=== PATIENT | female | born 1980 | race Caucasian/White ===

== ENCOUNTER → 2020-01-11 08:25 | Outpatient (BNVA) | payer SELFPAY | PROVIDERS: Family Provider Electrodiagnostic Medicine; Visit Provider Nurse Practitioner Women's Health | DX: Z30.431 Encounter for routine checking of intrauterine contraceptive device (principal); Z01.419 Encounter for gynecological examination (general) (routine) without abnormal findings | CPT/HCPCS: 88175 ==

== ENCOUNTER → 2022-04-25 09:25 | Outpatient (BNVA) | payer OTHER, SELFPAY | PROVIDERS: Family Provider Electrodiagnostic Medicine; Visit Provider Family Medicine | DX: E06.3 Autoimmune thyroiditis (principal); R10.9 Unspecified abdominal pain; F41.9 Anxiety disorder, unspecified; G43.109 Migraine with aura, not intractable, without status migrainosus | CPT/HCPCS: 80053; 84443; 85025 ==

== ENCOUNTER 2022-06-05 15:47 | Outpatient (CLI) | payer OTHER, SELFPAY ==
--- NOTE | 2022-06-05 16:00 | CT_ITS ---
WS: [id number] CT ABDOMEN AND PELVIS NONCONTRAST HISTORY: pain x wks w/ tenderness to palpation (nonsurgical abd) TECHNIQUE: Imaging performed through the abdomen and pelvis. Coronal and sagittal reformats are submi tted. All CT scans at [facility] use at least one of these dose optimization techniques: auto mated exposure control; mA and/or kV adjustment per patient size (includes targeted exams where dose is matched to clinical indication); or iterative reconstruction. DLP: 1281.02 mGy.cm COMPARISON: 02/13/2017 Lower thorax: Lung bases are clear. Visualized heart is normal. No hiatal hernia. Liver: Mild hepatomegaly decreased attenuation from hepatic steatosis. No mass identified. Gallbladder: Prior cholecystectomy. Pancreas: Normal size and attenuation. Normal pancreatic duct. No pancreatitis or mass. Spleen: Normal size spleen with a few granulomata. Adrenal glands: Normal. No mass. Right kidney: Normal size kidney with no mass or hydronephrosis. Left kidney: Normal size kidney with no mass or hydronephrosis. Aorta: Mild atherosclerosis abdominal aorta with no aneurysm. No free fluid, intraperitoneal air or significant lymphadenopathy. GI tract: Normal appendix. No small bowel obstruction. Stomach is moderately well distended with flui d. There is mild diffuse constipation, greatest in the RIGHT colon. There are several diverticula in the sigmoid colon with no acute diverticulitis. Abdominal wall: Negative. No hernia. Pelvis: Uterus is midline and contains an IUD. Small follicles in each ovary. No free fluid or adenop athy. Osseous structures: Unremarkable. CT/CT abdomen pelvis wo con [id number] IMPRESSION: 1. No acute abdominal or pelvic abnormalities identified. 2. Normal appendix. 3. IUD remains in good position. 4. Prior cholecystectomy. 5. A few scattered sigmoid diverticula without acute diverticulitis.
== END 2022-06-05 15:48 | disposition home or self-care (01) ==
LOC: RAD 15:49
PROVIDERS: Visit Provider Family Medicine
DX: R10.9 Unspecified abdominal pain (principal); K57.30 Diverticulosis of large intestine without perforation or abscess without bleeding
CPT/HCPCS: 74176

== ENCOUNTER 2022-07-06 20:22 | Emergency (ER) | payer OTHER, SELFPAY ==
[2022-07-06 20:38] VITALS: BP 174/85; PULSE 55; RESP 20; TEMP 36.8; O2SAT 100; BMI 36.5
--- NOTE | 2022-07-06 21:32 | ED_ITS ---
HPI - Dental/Oral General: Chief complaint: Dental/Oral Stated complaint: Abcess in mouth Time Seen by Provider: 07/06/22 21:15 History of Present Illness: Patient is a 42-year-old female who comes to the ED with dental pain. Dental pain started approximately 4 days ago. She rates t he pain currently an 8 out of 10 and it radiates into her right jaw. She called her dentist and they started her on amoxicillin. She was told to call dentist on Friday morning to set up an appointment for further management of dental pain. She is only taken 3 doses of amoxicillin. She states that she was on Augmentin about a week ago as well for an upper respiratory infection. Denies any trouble breathing or swallowing. Teeth map: 1. Dental pain on tooth #31 Associated symptoms: Denies fever(s) or odynophagia Review of Systems Const: Denies: fever(s), chills or fatigue Eyes: Denies: change in vision or eye discomfort ENMT: Reports: dental pain; Denies: throat pain, odynophagia, nasal discharge or nasal congestion Card: Denies: chest pain, palpitations, edema, swelling of feet/ankles, dyspnea on exertion or orthopnea Resp: Denies: dyspnea, productive cough or non-productive cough GI: Denies: abdominal pain, nausea, vomiting, diarrhea, constipation or hematochezia : Denies: flank pain, dysuria or hematuria Musc: Denies: neck pain, back pain or extremity swelling Skin/Breast: Denies: rash or new lesions Neuro: Denies: headache(s), numbness in extremities or weakness in extremities PFSH ED PFSH: Medical History Anxiety Blanca's thyroiditis Migraine with aura Surgical History History of section History of cholecystectomy (~1998) History of oral surgery Family History Mother Hypertension Diabetes Cancer, Onset Age: 40 Uterine cancer Brother Hypertension Father Hypertension Family/Other Diabetes Maternal aunt Cancer Maternal Aunt Social History Smoking and tobacco status: former smoker Quit status (tobacco): has quit using tobacco Year quit tobacco: 2018 Alcohol intake: never Lives independently: Yes Household members: spouse and children Marital status: Number of children: 2 Current occupational status: employed 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 Physical Exam Const: COMMON NORMALS: no acute distress, patient oriented x3 and alert GENERAL APPEARANCE: cooperative and comfortable HENMT: COMMON NORMALS: normocephalic HEAD & SCALP: normocephalic MOUTH: Normal oral and palatal mucosa present TEETH & GINGIVA: Yes caries (Back lower right molar has dental caries.) THROAT: posterior oropharynx normal and uvula midline Eye: GENERAL EYE: appearance normal, both eyes and all related structures Neck/C-Spine: COMMON NORMALS: supple GENERAL: Yes normal visual inspection Resp: COMMON NORMALS: normal respiratory effort, No retractions, No use of accessory muscles and clear to auscultation bilaterally AUSCULTATION: clear to auscultation bilaterally Cardio: COMMON NORMALS: regular rate, regular rhythm, S1 normal heart sound present, S2 normal heart sound present, No gallops present (Cardio), No clicks present (Cardio), No murmurs present (Cardio) and Peripheral pulses 2+ throughout RATE: regular rate RHYTHM: regular rhythm HEART SOUNDS: S1 normal heart sound present and S2 normal heart sound present PERIPHERAL PULSES: Peripheral pulses 2+ throughout GI: COMMON NORMALS: Normal to inspection, nondistended, normoactive bowel sounds present, Soft to palpation, non-tender and no masses PALPATION: Yes Soft to palpation : COMMON NORMALS: Yes no CVA tenderness BLADDER/KIDNEY EXAM: Yes no CVA tenderness Back/Pelvis: COMMON NORMALS: no CVA tenderness Extremity: COMMON NORMALS: normal to inspection Neuro: COMMON NORMALS: patient oriented x3 SENSORIUM/ORIENTATION: Yes alert GAIT: Yes Normal gait present Skin: GENERAL SKIN EXAM: dry skin Course Vital Signs: Vital signs: Vital Signs Temperature 98.3 F 07/06/22 20:38 Pulse Rate 61 07/06/22 21:57 Respiratory Rate 18 07/06/22 21:57 Blood Pressure 161/82 07/06/22 21:57 Pulse Oximetry 100 07/06/22 21:57 Oxygen Delivery Me thod 07/06/22 20:38 MDM - Dental/Oral Medical Decision Making Patient is a 42-year-old female comes to the ED with dental pain. She just started taking amoxicillin yesterday and says the pain has not improved. She has an appointment with her dentist this coming week for further evaluation. Denies any trouble breathing or swallowing. Vitals are unremarkable. Patient does have dental caries in the back bottom right molar. Patient was given a dose of clindamycin and Toradol here in the ED and sent home with a prescription for clindamycin. Told to follow-up with his dentist as scheduled appointment this coming week. Return to ED precautions given. Patient understood and agreed with plan. Discharge Plan Discharge Patient Disposition: Home Clinical Impression: Dental infection Condition: Stable Prescriptions: New clindamycin HCl 150 mg capsule 300 mg PO QID 7 Days Qty: 56 0RF No Action amoxicillin-pot clavulanate 875-125 mg tablet 1 tab PO BID Qty: 10 0RF Excedrin Migraine 250-250-65 mg tablet 1 tab PO Q6H PRN escitalopram oxalate [Lexapro] 10 mg tablet 10 mg PO DAILY Qty: 30 5RF levothyroxine 50 mcg capsule 50 mcg PO DAILY Qty: 30 5RF diclofenac sodium [Voltaren Arthritis Pain] 1 % gel 2 g topical QID Qty: 100 0RF Rx Instructions: apply to single elbow, wrist or hand; for hand includes palm/fingers/back of hand Discharge Orders: Discharge ED (Routine); Ordered 07/06/22 Ordered By: Reji Bhandari Referrals: Tiffany Del Rio MD [Primary Care Provider] - Discharge Diet: Regular Discharge Activity: Increase activity as tolerated Patient Instructions: Dental Caries (Cavities), Dental Abscess (ED) Activity Restrictions/Additional Instructions: Follow-up with dentist on Friday to get an appointment set up for further evaluation/treatment of dental pain. Take medications as prescribed. You can stop taking the previously prescribed amoxicillin. Continue taking [id number] Tylenol or ibuprofen per bottle instruction for pain. Return to the ER or your medical provider if condition worsens. Please read and understand discharge instructions. Thank you for choosing [facility] for your healthcare needs today. Please realize this is an emergency room and that we are providing you with a medical screening exam and this may not be complete and all inclusive of all the testing and or work up that you may need to determine your ailment or severity of your illness. It is very important that you follow up as instructed or that you return to the Emergency Department should you have concerns or if your condition changes or worsens in any way. Coding Level of Care Code ED Camp[facility] Hand for Beatrice Townsend Exam Comprehensive
[2022-07-06] MEDS: ketorolac 60 mg/2 mL INJ IM (21:47)
[2022-07-06] MEDS: clindamycin 150 mg Capsule 300 MG PO (21:47)
[2022-07-06 21:57] VITALS: BP 161/82; PULSE 61; RESP 18; O2SAT 100
== END 2022-07-06 22:01 | disposition home or self-care (01) ==
PROVIDERS: Emergency Provider Physician Assistant; PCP Family Medicine
DX: K04.7 Periapical abscess without sinus (principal); Z87.891 Personal history of nicotine dependence
CPT/HCPCS: 96372; 99284; J1885

== ENCOUNTER 2022-07-08 03:19 | Emergency (ER) | payer OTHER, SELFPAY ==
[2022-07-08 03:31] VITALS: BP 168/98; PULSE 84; RESP 20; TEMP 36.6; O2SAT 98; BMI 36.5
--- NOTE | 2022-07-08 03:57 | CTR_ITS ---
PROCEDURE INFORMATION: Exam: CT Neck With Contrast Exam date and time: 07/08/2022 4:51 AM Age: 42 years old Clinical indication: Neck pain and painful swallowing; Additional info: Submandibular swelling TECHNIQUE: Imaging protocol: Computed tomography of the neck with contrast. Radiation optimization: All CT scans at this facility use at least one of these dose optimization techniques: automated exposure control; mA and/or kV adjustment per patient size (includes targeted exams where dose is matched to clinical indication); or iterative reconstruction. Contrast material: OMNIPAQUE 350; Contrast volume: 95 ml; Contrast route: INTRAVENOUS (IV); COMPARISON: [place] thyroid [id number] 02/18/2019 11:05 AM RADIATION DOSE METRICS: Total DLP (mGy-cm): 308.76 FINDINGS: Paranasal sinuses: The right lower maxillary sinus shows a large retention cyst measuring up to about 3.1 cm. Minimal left maxillary sinus mucosal thickening as well. Pharynx: No focal mucosal space suspicious lesion is noted. Larynx: Unremarkable. Epiglottis is unremarkable. Prevertebral and retropharyngeal spaces: Unremarkable. Salivary glands: Within normal limits. Glands are normal in size. Thyroid: The thyroid is not enlarged. No suspicious nodules are apparent. Lymph nodes: A few perimandibular nodes measure up to 1.4 cm. No necrotic lymphadenopathy. Trachea: Visualized trachea is unremarkable. Lungs: Unremarkable as visualized. Bones/joints: At the right anterior mandible/chin area, there is a large amount of subcutaneous edema and fat stranding. A few minute pockets of fluid but no sizable or demonstrable focal abscess. See series 3, image 54. No focal bone destruction is noted. Soft tissues: See Bones/joints finding. CT/CT neck w con* [id number] IMPRESSION: 1. Large amount of right jaw subcutaneous edema/cellulitis with some minute pockets of fluid but no sizable abscess. This may be an odontogenic infection. No strong evidence of sialoadenitis. 2. A few adjacent, likely reactive nodes. 3. Udrmn-zmgxleb-wpdq-left maxillary sinus disease.
[2022-07-08] MEDS: iohexol 350 mg/mL 500 mL Btl (per mL) IV (04:49)
--- NOTE | 2022-07-08 04:53 | ED_ITS ---
HPI - Dental/Oral General: Chief complaint: Dental/Oral Stated complaint: Absess Tooth\Swollen Face Time Seen by Provider: 07/08/22 03:38 Source: patient History of Present Illness: 42-year-old female who has been dealing with a right lower molar tooth problem. She is had 2 or 3 different antibiotics for this. She presents with worsening facial swelling over the past 24 hours or so. She denies any fever. She notes that she got worried when it became more difficult to swallow and more painful to swallow, and was hurting down into her neck. No trouble breathing. Onset (ago): day(s) Duration: constant Severity: moderate Relieving factors: prescription analgesics Exacerbating factors: swallowing Associated symptoms: Reports ear or mastoid pain, odynophagia and sore throat; Denies fever(s) or tongue swelling Review of Systems Const: Denies: fever(s) Eyes: Denies: change in vision ENMT: Reports: throat pain, odynophagia, mouth pain, dental pain, ear or mastoid pain and sinus pain; Denies: swelling of lips/tongue or ear discharge Card: Denies: chest pain Resp: Denies: dyspnea GI: Denies: abdominal pain All/Imm: Denies: tongue swelling PFSH ED PFSH: Medical History Anxiety Blanca's thyroiditis Migraine with aura Surgical History History of section History of cholecystectomy (~1998) History of oral surgery Family History Mother Hypertension Diabetes Cancer, Onset Age: 40 Uterine cancer Brother Hypertension Father Hypertension Family/Other Diabetes Maternal aunt Cancer Maternal Aunt Social History Smoking and tobacco status: former smoker Quit status (tobacco): has quit using tobacco Year quit tobacco: 2017 Alcohol intake: never Lives independently: Yes Household members: spouse and children Marital status: Number of children: 2 Current occupational status: employed 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 Physical Exam Const: COMMON NORMALS: no acute distress GENERAL APPEARANCE: cooperative HENMT: COMMON NORMALS: Normal external nose present FACE & SINUS: edema; no sinus tenderness, no ecchymosis and no erythema NOSE: Normal external nose present and Normal nares present MOUTH: Normal oral and palatal mucosa present TEETH & GINGIVA: Yes fair dentition THROAT: posterior oropharynx normal Eye: COMMON NORMALS: Equal, round and reactive pupils present and EOMs intact bilaterally PUPIL: Yes Equal, round and reactive pupils present Neck/C-Spine: GENERAL: Yes trachea midline and Yes submandibular swelling (right worse than left) Chest: CHEST: Yes Symmetrical chest wall rise Resp: COMMON NORMALS: normal respiratory effort, No use of accessory muscles and clear to auscultation bilaterally AUSCULTATION: clear to auscultation bilaterally OTHER: no stridor Cardio: COMMON NORMALS: regular rate and regular rhythm RATE: regular rate RHYTHM: regular rhythm GI: INSPECTION: Yes normal to inspection Course Vital Signs: Vital signs: Vital Signs Temperature 98 F 07/08/22 03:31 Pulse Rate 84 07/08/22 03:31 Respiratory Rate 20 H 07/08/22 03:31 Blood Pressure 168/98 07/08/22 03:31 Pulse Oximetry 98 07/08/22 03:31 Oxygen Delivery Me thod 07/08/22 03:31 MDM - Dental/Oral Medical Decision Making Right jaw/facial swelling on exam. White blood cell count is 11. CRP 48. Due to significant swelling, CT was ordered. It shows a large amount of right jaw subcutaneous edema/cellulitis with minute pockets of fluid but no sizable abscess. No evidence of significant swelling to the floor the mouth. On exam, there is no tongue elevation. She is given a dose of IV steroids for swelling here. She will continue the cephalexin. She is to make an appointment with her dentist either today or early this week. Lab Data 07/08/22 04:45 07/08/22 04:[address] 07/08/22 03:57 IMPRESSION: 1. Large amount of right jaw subcutaneous edema/cellulitis with some minute pockets of fluid but no sizable abscess. This may be an odontogenic infection. No strong evidence of sialoadenitis. 2. A few adjacent, likely reactive nodes. 3. Smcxe-pcuerkm-xzen-left maxillary sinus disease. Laboratory Results WBC 10.9 10^3/uL (4.0-10.0) H 07/08/22 04:45 RBC 4.50 10^6/uL (4.1-5.3) 07/08/22 04:45 Hgb 11.5 g/dL (11.5-15.3) 07/08/22 04:45 Hct 36.4 % (37.0-47.0) L 07/08/22 04:45 MCV 80.9 fl (81-99) L 07/08/22 04:45 MCH 25.6 pg (28.0-34.0) L 07/08/22 04:45 MCHC 31.6 g/dL (30.0-36.0) 07/08/22 04:45 RDW 14.8 % (12.1-15.1) 07/08/22 04:45 Plt Count 243 10^3/cmm (130-400) 07/08/22 04:45 MPV 9.5 fL (7.4-10.4) 07/08/22 04:45 Neut % (Auto) 75.2 % 07/08/22 04:45 Lymph % (Auto) 16.3 % 07/08/22 04:45 Crowley % (Auto) 7.7 % 07/08/22 04:45 Eos % (Auto) 0.2 % 07/08/22 04:45 Baso % (Auto) 0.2 % 07/08/22 04:45 Neut # (Auto) 8.21 10^3/uL (1.8-7.7) H 07/08/22 04:45 Lymph # (Auto) 1.8 10^3/uL (0.8-4.8) 07/08/22 04:45 Crowley # (Auto) 0.8 10^3/uL (0.2-0.9) 07/08/22 04:45 Eos # (Auto) 0.0 10^3/uL (0.0-0.8) 07/08/22 04:45 Baso # (Auto) 0.0 10^3/uL (0.0-0.1) 07/08/22 04:45 Nucleated RBC % (auto) 0 % 07/08/22 04:45 Nucleated RBCs # 0.0 /100WBC 07/08/22 04:45 Sodium 130 mmol/L (136-145) L 07/08/22 04:45 Potassium 3.6 mmol/L (3.5-5.1) 07/08/22 04:45 Chloride 95 mmol/L (98-107) L 07/08/22 04:45 Carbon Dioxide 26 mmol/L (22-29) 07/08/22 04:45 Anion Gap 12.6 (5-19) 07/08/22 04:45 BUN 6 mg/dL (6-20) 07/08/22 04:45 Creatinine 0.5 mg/dL (0.5-0.9) 07/08/22 04:45 GFR Calculation 136.6 mL/min (90-130) H 07/08/22 04:45 Glucose 127 mg/dL (65-115) H 07/08/22 04:45 Calculated Osmolality 269 mOsm/kg (285-295) L 07/08/22 04:45 Calcium 8.8 mg/dL (8.5-10.5) 07/08/22 04:45 Total Bilirubin 0.5 mg/dL (0.15-1.2) 07/08/22 04:45 AST 12 U/L (0-32) 07/08/22 04:45 ALT 20 U/L (0-33) 07/08/22 04:45 Alkaline Phosphatase 86 U/L (35-105) 07/08/22 04:45 C-Reactive Protein 47.8 mg/L (0.0-4.9) H 07/08/22 04:45 Total Protein 7.1 g/dL (6.6-8.7) 07/08/22 04:45 Albumin 3.8 g/dL (3.5-5.2) 07/08/22 04:45 Globulin 3.3 g/dL (1.3-4.6) 07/08/22 04:45 Discharge Plan Discharge Patient Disposition: Home Clinical Impression: Dental infection Condition: Stable Prescriptions: No Action amoxicillin-pot clavulanate 875-125 mg tablet 1 tab PO BID Qty: 10 0RF Excedrin Migraine 250-250-65 mg tablet 1 tab PO Q6H PRN escitalopram oxalate [Lexapro] 10 mg tablet 10 mg PO DAILY Qty: 30 5RF levothyroxine 50 mcg capsule 50 mcg PO DAILY Qty: 30 5RF diclofenac sodium [Voltaren Arthritis Pain] 1 % gel 2 g topical QID Qty: 100 0RF Rx Instructions: apply to single elbow, wrist or hand; for hand includes palm/fingers/back of hand clindamycin HCl 150 mg capsule 300 mg PO QID 7 Days Qty: 56 0RF Discharge Orders: Discharge ED (Routine); Ordered 07/08/22 Ordered By: Sudarshan Sullivan Patient Instructions: Dental Abscess (ED) Activity Restrictions/Additional Instructions: Continue your antibiotics as directed. Call your dentist later today, as they will likely want to see you. Return for any worsening swelling, especially involving the floor of your mouth, your tongue, or any worsening shortness of breath. Coding Level of Care Code ED Clinical Registered Nurse for Beatrice Fwd Exam Comprehensive
[2022-07-08 04:57] LABS: Basophils % 0.2 %; Eosinophils % 0.2 %; Hematocrit 36.4 % (37.0-47.0); Hemoglobin 11.5 g/dL (11.5-15.3); Lymphocytes # 1.8 10^3/uL (0.8-4.8); Lymphocytes % 16.3 %; Mean Corpuscular HGB Conc 31.6 g/dL (30.0-36.0); Mean Corpuscular Hemoglobin 25.6 pg (28.0-34.0); Mean Corpuscular Volume 80.9 fl (81-99); Mean Platelet Volume 9.5 fL (7.4-10.4); Monocytes # 0.8 10^3/uL (0.2-0.9); Monocytes % 7.7 %; Neutrophils # 8.21 10^3/uL (1.8-7.7); Neutrophils % 75.2 %; Nucleated Red Blood Cells % 0 %; Platelet Count 243 10^3/cmm (130-400); Red Cell Distribution Width 14.8 % (12.1-15.1); White Blood Count 10.9 10^3/uL (4.0-10.0)
[2022-07-08 05:14] LABS: Alanine Aminotransferase 20 U/L (0-33); Albumin Level 3.8 g/dL (3.5-5.2); Alkaline Phosphatase 86 U/L (35-105); Anion Gap 12.6 (5-19); Aspartate Amino Transferase 12 U/L (0-32); Blood Urea Nitrogen 6 mg/dL (6-20); C Reactive Protein 47.8 mg/L (0.0-4.9); Calcium 8.8 mg/dL (8.5-10.5); Carbon Dioxide 26 mmol/L (22-29); Chloride 95 mmol/L (98-107); Globulin 3.3 g/dL (1.3-4.6); Glomerular Filtration Rate 136.6 mL/min (90-130); Glucose 127 mg/dL (65-115); Osmolality Calculated 269 mOsm/kg (285-295); Potassium 3.6 mmol/L (3.5-5.1); Sodium 130 mmol/L (136-145); Total Bilirubin 0.5 mg/dL (0.15-1.2); Total Protein 7.1 g/dL (6.6-8.7)
[2022-07-08] MEDS: dexamethasone 4 mg/mL INJ 8 MG IVP (05:32)
[2022-07-08] MEDS: ondansetron 2 mg/ML SDV 2 mL 4 MG IVP (05:52)
[2022-07-08] MEDS: ketorolac 30 mg/mL INJ 15 MG IVP (05:52)
== END 2022-07-08 06:03 | disposition home or self-care (01) ==
PROVIDERS: Emergency Provider Emergency Medicine
DX: K04.7 Periapical abscess without sinus (principal); Z87.891 Personal history of nicotine dependence
CPT/HCPCS: 70491; 80053; 85025; 86140; 96374; 96375; 99285; J1100; J1885; J2405; Q9967

== ENCOUNTER → 2022-12-25 13:30 | Outpatient (BNVA) | payer OTHER, SELFPAY | PROVIDERS: PCP Family Medicine; Visit Provider Nurse Practitioner Women's Health | DX: R87.619 Unspecified abnormal cytological findings in specimens from cervix uteri (principal); Z30.432 Encounter for removal of intrauterine contraceptive device; R87.610 Atypical squamous cells of undetermined significance on cytologic smear of cervix (ASC-US) | CPT/HCPCS: 87624 ==

== ENCOUNTER 2023-03-08 13:25 | Emergency (ER) | payer OTHER, SELFPAY ==
[2023-03-08 13:32] VITALS: BP 161/97; PULSE 81; RESP 16; TEMP 36.6; O2SAT 98; BMI 36.5
--- NOTE | 2023-03-08 14:20 | ED_ITS ---
HPI - Abdominal Pain General: Chief Complaint: Abdominal Pain Stated Complaint: UC sent for abd pain Time Seen by Provider: 03/08/23 13:39 History of Present Illness: Patient is a 43-year-old female that presents to the emergency department with right lower quadrant abdominal pain x1 week. Patient states she noted increase bloating without nausea or vomiting. Pain in the right lower quadrant is pinching sharp. She has trialed stool softeners and a laxative that resulted in a bowel movement but no improvement in her right lower quadrant pain. She denies fevers or chills she denies vomiting or diarrhea She has not had a bowel movement in 2 days at this point She reports hypothyroidism; has undergone a and cholecystectomy Associated Symptoms: Reports bloating, constipation and GI cramping; Denies chills, diarrhea, dysuria, fever(s), hematochezia, hematuria, nausea and vomiting Related Data: Date of Last Menstrual Period: 02/26/23 Review of Systems General: Reports: 10 or more systems reviewed and unremarkable except in HPI and below Const: Denies: fever(s), chills, change in appetite, change in weight, fatigue or malaise Eyes: Denies: change in vision, eye discomfort, eye discharge or eye redness ENMT: Denies: throat pain, enlarged tonsils, odynophagia, hoarseness, ear or mastoid pain, ear discharge, change in hearing, tinnitus, nasal discharge, nasal congestion, post nasal drip or sinus pain Card: Denies: chest pain, palpitations, irregular heart rhythm, edema, dyspnea on exertion, orthopnea or leg pain with exertion Resp: Denies: dyspnea, productive cough, non-productive cough, wheezing, stridor or chest congestion GI: Reports: abdominal pain, constipation, bloating and GI cramping; Denies: nausea, vomiting, dysphagia, diarrhea or hematochezia : Denies: flank pain, difficulty voiding, dysuria, urinary frequency, urinary urgency, urinary hesitancy, oliguria or hematuria Musc: Denies: neck pain, back pain, extremity pain, joint pain, joint swelling, joint redness, joint warmth or muscle weakness Skin/Breast: Denies: rash, pruritus, erythema, photosensitivity or new lesions Neuro: Denies: headache(s), numbness in extremities, weakness in extremities, sensory changes, lack of coordination, difficulty walking, frequent falls, dizziness, confusion, Slurred speech present, difficulty communicating thoughts, seizure-like activity or involuntary movements Endo: Denies: polyuria, polydipsia or tired all the time Foster/Lymph: Denies: easy bruising or easy bleeding PFSH ED PFSH: Medical History Anxiety Blanca's thyroiditis Migraine with aura Surgical History History of section History of cholecystectomy (~1998) History of oral surgery Family History Mother Hypertension Diabetes Cancer, Onset Age: 40 Uterine cancer Brother Hypertension Father Hypertension Family/Other Diabetes Maternal aunt Cancer Maternal Aunt Female Reproductive History: Date of last menstrual period: 02/26/23 Physical Exam Const: COMMON NORMALS: no acute distress, patient oriented x3 and alert GENERAL APPEARANCE: cooperative ORIENTATION/CONSCIOUSNESS: Yes awake, Yes oriented to person, Yes oriented to place and Yes oriented to time HENMT: COMMON NORMALS: normocephalic and atraumatic HEAD & SCALP: normocephalic and atraumatic FACE & SINUS: normal facial exam MOUTH: Normal oral and palatal mucosa present THROAT: posterior oropharynx normal Eye: COMMON NORMALS: Equal, round and reactive pupils present, EOMs intact bilaterally, conjunctivae normal and no scleral icterus GENERAL EYE: appearance normal, both eyes and all related structures ALIGNMENT: Yes alignment normal PERIORBITAL: periorbital findings normal CONJUNCTIVA: Yes conjunctivae normal PUPIL: Yes Equal, round and reactive pupils present Neck/C-Spine: COMMON NORMALS: full ROM GENERAL: Yes normal visual inspection Lymph: LYMPHATIC: no lymphadenopathy noted Chest: COMMONS NORMALS: normal inspection of the chest Breast/axilla inspection: Yes no chest deformity, asymmetry, normal contours, no nodules, masses, tenderness Resp: COMMON NORMALS: normal respiratory effort, No retractions, No use of accessory muscles and clear to auscultation bilaterally EFFORT & INSPECTION: Yes able to speak in complete sentences and Yes symmetric chest movement AUSCULTATION: clear to auscultation bilaterally Cardio: COMMON NORMALS: regular rate, regular rhythm and Peripheral pulses 2+ throughout RATE: regular rate RHYTHM: regular rhythm PERIPHERAL PULSES: Peripheral pulses 2+ throughout GI: COMMON NORMALS: Normal to inspection, nondistended, normoactive bowel sounds present, Soft to palpation, non-tender and No hepatosplenomegaly present INSPECTION: Yes normal to inspection AUSCULTATION: Yes normoactive bowel sounds PALPATION: Yes Soft to palpation and Yes No hepatosplenomegaly present RECTAL EXAM: deferred Extremity: COMMON NORMALS: normal to inspection GENERAL: Yes normal exam except as noted Neuro: COMMON NORMALS: patient oriented x3 SENSORIUM/ORIENTATION: Yes al ert, Yes oriented to person, Yes oriented to place and Yes oriented to time CRANIAL NERVES: Yes CN normal except as noted Psych: COMMON NORMALS: mental status grossly normal, Normal thought process present, cooperative, activity/motor behavior normal, denies homicidal ideation and denies suicidal ideation THOUGHT PROCESS: Normal thought process present Skin: COMMON NORMALS: no rashes or lesions noted, no wounds and turgor normal GENERAL SKIN EXAM: no rashes or lesions noted and turgor normal Course Vital Signs: Vital signs: Vital Signs Temperature 97.9 F 03/08/23 13:32 Pulse Rate 81 03/08/23 13:32 Respiratory Rate 16 03/08/23 13:32 Blood Pressure 161/97 03/08/23 13:32 Pulse Oximetry 98 03/08/23 13:32 Oxygen Delivery Me thod Room Air 03/08/23 13:32 MDM - Abdominal Pain Medical Decision Making Was evaluated in the emergency department for complaints of right lower quadrant abdominal pain. Differential diagnosis includes appendicitis, constipation, gastroenteritis, adnexal cyst, urinary tract infection, kidney stone Patient underwent diagnostic evaluation that included a KUB and laboratory studies. Laboratory studies did not reveal a leukocytosis, anemia, electrolyte dysfunction, kidney or hepatic dysfunction, elevated lipase, or lactic acidosis. Her urinalysis was unremarkable KUB of the abdomen did reveal a moderate colonic stool burden. Patient I had a discussion about these findings. I explained to her that while there are no acute findings suggestive of a surgical emergency we cannot be certain without a CT of the abdomen and pelvis. At this time we are going to allow her to treat at home. She is going to work on a bowel movement. If new, concerning, worrisome symptoms present or persist she is to return to the emergency department. All questions answered Lab Data 03/08/23 14:34 03/08/23 14:34 Labs/Radiology: Radiology Impressions KUB X-Ray 03/08/23 14:21 IMPRESSION: Moderate colonic stool burden. Laboratory Results WBC 9.7 10^3/uL (4.0-10.0) 03/08/23 14:34 RBC 4.63 10^6/uL (4.1-5.3) 03/08/23 14:34 Hgb 12.0 g/dL (11.5-15.3) 03/08/23 14:34 Hct 38.3 % (37.0-47.0) 03/08/23 14:34 MCV 82.7 fl (81-99) 03/08/23 14:34 MCH 25.9 pg (28.0-34.0) L 03/08/23 14:34 MCHC 31.3 g/dL (30.0-36.0) 03/08/23 14:34 RDW 14.6 % (12.1-15.1) 03/08/23 14:34 Plt Count 222 10^3/cmm (130-400) 03/08/23 14:34 MPV 10.1 fL (7.4-10.4) 03/08/23 14:34 Neut % (Auto) 65.3 % 03/08/23 14:34 Lymph % (Auto) 24.0 % 03/08/23 14:34 [place] % (Auto) 8.5 % 03/08/23 14:34 Eos % (Auto) 1.3 % 03/08/23 14:34 Baso % (Auto) 0.4 % 03/08/23 14:34 Neut # (Auto) 6.30 10^3/uL (1.8-7.7) 03/08/23 14:34 Lymph # (Auto) 2.3 10^3/uL (0.8-4.8) 03/08/23 14:34 [place] # (Auto) 0.8 10^3/uL (0.2-0.9) 03/08/23 14:34 Eos # (Auto) 0.1 10^3/uL (0.0-0.8) 03/08/23 14:34 Baso # (Auto) 0.0 10^3/uL (0.0-0.1) 03/08/23 14:34 Nucleated RBC % (auto) 0 % 03/08/23 14:34 Nucleated RBCs # 0.0 /100WBC 03/08/23 14:34 Sodium 139 mmol/L (136-145) 03/08/23 14:34 Potassium 3.9 mmol/L (3.5-5.1) 03/08/23 14:34 Chloride 104 mmol/L (98-107) 03/08/23 14:34 Carbon Dioxide 26 mmol/L (22-29) 03/08/23 14:34 Anion Gap 12.9 (5-19) 03/08/23 14:34 BUN 8 mg/dL (6-20) 03/08/23 14:34 Creatinine 0.5 mg/dL (0.5-0.9) 03/08/23 14:34 GFR Calculation 136.0 mL/min (90-130) H 03/08/23 14:34 Glucose 97 mg/dL (65-115) 03/08/23 14:34 Calculated Osmolality 286 mOsm/kg (285-295) 03/08/23 14:34 Lactic Acid 0.9 mmol/L (0.5-2.2) 03/08/23 14:34 Calcium 8.4 mg/dL (8.5-10.5) L 03/08/23 14:34 Total Bilirubin 0.2 mg/dL (0.15-1.2) 03/08/23 14:34 AST 46 U/L (0-32) H 03/08/23 14:34 ALT 71 U/L (0-33) H 03/08/23 14:34 Alkaline Phosphatase 81 U/L (35-105) 03/08/23 14:34 Total Protein 6.5 g/dL (6.6-8.7) L 03/08/23 14:34 Albumin 3.8 g/dL (3.5-5.2) 03/08/23 14:34 Globulin 2.7 g/dL (1.3-4.6) 03/08/23 14:34 Lipase 24 U/L (13-60) 03/08/23 14:34 HCG, Qual Negative (Negative) 03/08/23 15:12 Urine Color Straw (Yellow) 03/08/23 15:12 Urine Appearance Clear (CLEAR) 03/08/23 15:12 Urine pH 7 (5-7) 03/08/23 15:12 Ur Specific [place] 1.010 (1.005-1.030) 03/08/23 15:12 Urine Protein Neg (Negative) 03/08/23 15:12 Urine Glucose (UA) Norm (Normal) 03/08/23 15:12 Urine Ketones Negative (Negative) 03/08/23 15:12 Urine Blood Neg (Negative) 03/08/23 15:12 Urine Nitrate Negative (Negative) 03/08/23 15:12 Urine Bilirubin Neg (Negative) 03/08/23 15:12 Urine Urobilinogen Norm mg/dL (Negative) 03/08/23 15:12 Ur Leukocyte Esterase Negative (Negative) 03/08/23 15:12 Discharge Plan Discharge Patient Disposition: Home Clinical Impression: Abdominal pain, Constipation Condition: Stable Prescriptions: No Action Excedrin Migraine 250-250-65 mg tablet 1 tab PO Q6H PRN (Reason: Pain) albuterol sulfate 90 mcg/actuation HFA aerosol inhaler 2 inh inhalation Q4H PRN (Reason: shortness of breath or wheezing) Qty: 8.5 0RF Flonase Allergy Relief 50 mcg/actuation [place],Suspension 1 spray INTRANASAL BID PRN (Reason: Allergy Symptoms) Rx Instructions: administer into each nostril Zyrtec 10 mg Capsule 10 mg PO DAILY PRN (Reason: Allergy Symptoms) levothyroxine 50 mcg tablet 50 mcg PO DAILY Discharge Orders: Discharge ED (Routine); Ordered 03/08/23 Ordered By: Kayden Jauregui [facility] [place] Referrals: Tiffany Del Rio MD [Primary Care Provider] - Discharge Diet: Advance as tolerated Discharge Activity: Resume usual activity Patient Instructions: Constipation (ED), Abdominal Pain (ED), Pain Management Activity Restrictions/Additional Instructions: I want you to try all mag citrate or MiraLAX. If you develop fever, increased abdominal pain, nausea vomiting then you need to return to the emergency department. As discussed we did not perform a CT of the abdomen. If your symptoms persist or worsen then we may need to perform a CT. As discussed your laboratory studies did not show you had signs of infection, anemia, electrolyte abnormalities, abnormal kidney or liver function, or lactic acidosis (which is suggestive of an acute illness or surgical problem). Is no evidence of a urinary tract infection. Coding Level of Care Code ED Emission Technician for Chg Fwd
--- NOTE | 2023-03-08 14:21 | XRR_ITS ---
PROCEDURE INFORMATION: Exam: XR Abdomen Exam date and time: 03/08/2023 2:32 PM Age: 43 years old Clinical indication: Constipation; Additional info: No bowel movement in 3 days with abdominal pain TECHNIQUE: Imaging protocol: Radiologic exam of the abdomen. Views: Frontal supine view of the abdomen. 1 View. COMPARISON: CT abdomen pelvis con [id number] 06/05/2022 3:56 PM FINDINGS: Gastrointestinal tract: Moderate colonic stool burden. No bowel dilation. Bones/joints: Unremarkable. XR/XR KUB portable [id number] IMPRESSION: Moderate colonic stool burden.
[2023-03-08 14:44] LABS: Basophils % 0.4 %; Eosinophils # 0.1 10^3/uL (0.0-0.8); Eosinophils % 1.3 %; Hematocrit 38.3 % (37.0-47.0); Lymphocytes # 2.3 10^3/uL (0.8-4.8); Mean Corpuscular HGB Conc 31.3 g/dL (30.0-36.0); Mean Corpuscular Hemoglobin 25.9 pg (28.0-34.0); Mean Corpuscular Volume 82.7 fl (81-99); Mean Platelet Volume 10.1 fL (7.4-10.4); Monocytes # 0.8 10^3/uL (0.2-0.9); Monocytes % 8.5 %; Neutrophils % 65.3 %; Nucleated Red Blood Cells % 0 %; Platelet Count 222 10^3/cmm (130-400); Red Blood Count 4.63 10^6/uL (4.1-5.3); Red Cell Distribution Width 14.6 % (12.1-15.1); White Blood Count 9.7 10^3/uL (4.0-10.0)
[2023-03-08 15:00] LABS: Lactic Sepsis W/Reflex 0.9 mmol/L (0.5-2.2)
[2023-03-08 15:07] LABS: Alanine Aminotransferase 71 U/L (0-33); Albumin Level 3.8 g/dL (3.5-5.2); Alkaline Phosphatase 81 U/L (35-105); Anion Gap 12.9 (5-19); Aspartate Amino Transferase 46 U/L (0-32); Blood Urea Nitrogen 8 mg/dL (6-20); Calcium 8.4 mg/dL (8.5-10.5); Carbon Dioxide 26 mmol/L (22-29); Chloride 104 mmol/L (98-107); Globulin 2.7 g/dL (1.3-4.6); Glucose 97 mg/dL (65-115); Lipase 24 U/L (13-60); Osmolality Calculated 286 mOsm/kg (285-295); Potassium 3.9 mmol/L (3.5-5.1); Sodium 139 mmol/L (136-145); Total Bilirubin 0.2 mg/dL (0.15-1.2); Total Protein 6.5 g/dL (6.6-8.7)
[2023-03-08 15:15] LABS: Add Urine Microscopic? NO; Charge for UA Resulting for Rev
[2023-03-08 15:20] LABS: Bilirubin Urine Neg (Negative); Blood Urine Neg (Negative); Glucose Urine UA Norm (Normal); Ketones Urine Negative (Negative); Leukocyte Esterase Urine Negative (Negative); Nitrate Urine Negative (Negative); Protein Urine Neg (Negative); Urine Appearance Clear (CLEAR); Urine Color Straw (Yellow); Urobilinogen Urine Norm (Negative); pH Urine 7 (5-7)
[2023-03-08 15:48] LABS: HCG Qualitative Urine. Negative (Negative)
== END 2023-03-08 16:37 | disposition home or self-care (01) ==
PROVIDERS: Emergency Provider Nurse Practitioner; PCP Family Medicine
DX: R10.31 Right lower quadrant pain (principal); K59.00 Constipation, unspecified
CPT/HCPCS: 74018; 80053; 81003; 81025; 83605; 83690; 85025; 99284

== ENCOUNTER → 2023-03-18 13:55 | Outpatient (BNVA) | payer OTHER, SELFPAY | PROVIDERS: PCP Family Medicine; Visit Provider Family Medicine | DX: Z00.00 Encounter for general adult medical examination without abnormal findings (principal); Z13.6 Encounter for screening for cardiovascular disorders; D64.9 Anemia, unspecified; E06.3 Autoimmune thyroiditis; E87.1 Hypo-osmolality and hyponatremia; Z13.1 Encounter for screening for diabetes mellitus | CPT/HCPCS: 80061; 83036; 84443 ==

== ENCOUNTER → 2023-09-26 12:59 | Outpatient (BNVA) | payer OTHER, SELFPAY | PROVIDERS: PCP Family Medicine; Visit Provider Family Medicine | DX: E06.3 Autoimmune thyroiditis (principal); F41.9 Anxiety disorder, unspecified | CPT/HCPCS: 80053; 80061; 83001; 83002; 83036; 84443; 85025; 85651 ==

== ENCOUNTER 2023-10-08 18:55 | Outpatient (CLI) | payer OTHER, SELFPAY ==
--- NOTE | 2023-10-08 20:11 | XRR_ITS ---
PROCEDURE INFORMATION: Exam: XR Bilateral Hips Exam date and time: 10/08/2023 8:24 PM Age: 43 years old Clinical indication: Hip pain; Bilateral; Additional info: Bilateral hip pain TECHNIQUE: Imaging protocol: Radiologic exam of the bilateral hips. Views: 2 views of hips with pelvis when performed. COMPARISON: CT abdomen pelvis wo con [id number] 06/05/2022 3:56 PM FINDINGS: Bones/joints: No fracture or dislocation is seen about the hips. No fracture or diastasis is seen about the pelvis. Hip joints appear maintained without significant narrowing, as do sacroiliac joints and pubic symphysis. No bony erosion or destruction or periosteal bone reaction. A small benign 10 mm bone cyst is seen superolateral left femoral neck. Mild degenerative change within the visualized lower lumbar spine. Soft tissues: No significant soft tissue abnormality. XR/XR hip BI m 5V wo/w pel* [id number] IMPRESSION: Small 10 mm benign bone cyst superolateral left femoral neck. Otherwise negative exam of the hips and without acute findings.
== END 2023-10-08 18:56 | disposition home or self-care (01) ==
PROVIDERS: PCP Family Medicine; Visit Provider Family Medicine
DX: M53.3 Sacrococcygeal disorders, not elsewhere classified (principal); M85.652 Other cyst of bone, left thigh
CPT/HCPCS: 73523

== ENCOUNTER 2024-06-03 21:49 | Emergency (ER) | payer OTHER, SELFPAY ==
--- NOTE | 2024-06-03 21:54 | ECG_ITS ---
[facility] Date: 2024-06-03 Pat Name: Nela Carney Department: Room: Gender: Female [employer] [place] [place]: : 1980 Requested By: Kavita Thomas Order Number: [id number] Luisana MD: Clau Carcamo M.D. Measurements Intervals [place] Rate: 75 P: 59 NV: 150 QRS: 40 QRSD: 90 T: 46 QT: 379 QTc: 425 Interpretive Statements SINUS RHYTHM POSSIBLE LEFT ATRIAL ENLARGEMENT [-0.1mV P-WAVE IN V1/V2] LOW QRS VOLTAGE IN PRECORDIAL LEADS [QRS DEFLECTION < 1.0 mV IN CHEST LEADS] POSSIBLE RIGHT VENTRICULAR CONDUCTION DELAY [RSR (QR) IN V1/V2] Compared to ECG 07/16/2018 08:12:26 Low QRS voltage now present Electronically Signed On 06-03-2024 22:02:43 MUSEUM TECHNICIAN by Clau Carcamo M.D. [id number]
[2024-06-03 21:59] VITALS: BP 145/91; PULSE 85; RESP 16; TEMP 36.8; O2SAT 98; BMI 35.6
--- NOTE | 2024-06-03 22:03 | XRR_ITS ---
PROCEDURE INFORMATION: Exam: XR Chest Exam date and time: 06/03/2024 10:21 PM Age: 44 years old Clinical indication: Pain; Chest pressure; Additional info: Chest pain TECHNIQUE: Imaging protocol: Radiologic exam of the chest. Views: 1 view. COMPARISON: CR XR chest 1V [id number] 07/16/2018 8:12 AM FINDINGS: Lungs: Unremarkable. No consolidation. Pleural spaces: Unremarkable. No pleural effusion. No pneumothorax. Heart/Mediastinum: Unremarkable. No cardiomegaly. Bones/joints: Unremarkable. XR/XR chest 1V portable [id number] IMPRESSION: No acute findings.
[2024-06-03 23:01] LABS: Basophils % 0.5 %; Eosinophils # 0.1 10^3/uL (0.0-0.8); Eosinophils % 1.5 %; Hematocrit 42.4 % (36-47); Lymphocytes # 2.7 10^3/uL (0.8-4.8); Lymphocytes % 30.9 %; Mean Corpuscular HGB Conc 30.9 g/dL (30-55); Mean Corpuscular Hemoglobin 25.8 pg (27-33); Mean Corpuscular Volume 83.5 fl (85-98); Mean Platelet Volume 9.9 fL (7.4-10.4); Monocytes # 0.7 10^3/uL (0.2-0.9); Monocytes % 7.5 %; Neutrophils # 5.16 10^3/uL (1.8-7.7); Neutrophils % 59.3 %; Nucleated Red Blood Cells % 0 %; Platelet Count 264 10^3/cmm (157-399); Red Blood Count 5.08 10^6/uL (3.85-5.65); Red Cell Distribution Width 13.2 % (12.1-15.1)
[2024-06-03 23:23] LABS: Troponin(5th) Baseline < 6 ng/L (0-10)
--- NOTE | 2024-06-03 23:25 | ED_ITS ---
HPI - Chest Pain 2 General: Chief Complaint: Chest Pain Stated Complaint: chest pain Time Seen by Provider: 06/03/24 22:04 History of Present Illness: Patient presents to the ER with on and off chest pain today patient says she has had a stabbing type chest pain that is not exertionally dependent. Said mild shortness of breath during these episodes but no nausea or diaphoresis. Patient does not have a history of cardiac disease. Related Data Home Medications Medication Instructions Recorded Confirmed apspvel-qutphognubufu-ubbuclcs 250 1 tab PO Q6H PRN Pain 04/25/22 10/04/23 mg-250 mg-65 mg tablet (Excedrin Migraine) cetirizine 10 mg capsule (Zyrtec) 10 mg PO DAILY PRN Allergy Symptoms 03/08/23 10/04/23 fluticasone propionate 50 1 spray intranasal BID PRN Allergy 03/08/23 10/04/23 mcg/actuation nasal Symptoms spray,suspension (Flonase Allergy Relief) Previous Rx's Medication Instructions Recorded cyclobenzaprine 5 mg tablet 5 mg PO TID PRN muscle spasm #30 09/26/23 tabs albuterol sulfate 90 mcg/actuation 2 inh inhalation Q6H PRN shortness 01/20/24 aerosol inhaler of breath or wheezing #8.5 grams levothyroxine 50 mcg tablet See Rx Instructions .Route 04/26/24 .COMPLEX #90 tabs Allergies Allergy/AdvReac Type Severity Reaction Status Date / Time No Known Allergies Allergy Verified 01/26/24 14:24 Review of Systems 2 General: Reports: 10 or more systems reviewed and unremarkable except in HPI and below PFSH ED 2 PFSH: Medical History Migraine with aura Anxiety Blanca's thyroiditis Surgical History History of oral surgery History of section History of cholecystectomy (~1998) Family History Mother Hypertension Diabetes Cancer, Onset Age: 40 Uterine cancer Brother Hypertension Father Hypertension Family/Other Diabetes Maternal aunt Cancer Maternal Aunt Social History Smoking and tobacco/nicotine status: former use of tobacco/nicotine Physical Exam 2 Const: COMMON NORMALS: no acute distress, average body habitus, patient oriented x3, no limitations, healthy appearing, alert and well nourished HENMT: COMMON NORMALS: normocephalic, atraumatic, hearing grossly normal bilaterally, external ears normal, Normal external nose present and moist oral mucous membranes HEAD & SCALP: normocephalic and atraumatic NOSE: Normal external nose present EXTERNAL EAR: Yes external ears normal Neck/C-Spine: COMMON NORMALS: full ROM, no lymphadenopathy, supple, no meningeal signs, no JVD and Thyroid normal THYROID: Thyroid normal Chest: COMMONS NORMALS: normal inspection of the chest and normal palpation of entire chest wall Resp: COMMON NORMALS: normal respiratory effort, No retractions, No use of accessory muscles and clear to auscultation bilaterally AUSCULTATION: clear to auscultation bilaterally Cardio: COMMON NORMALS: no JVD, regular rate, regular rhythm, S1 normal heart sound present, S2 normal heart sound present, No gallops present (Cardio), No clicks present (Cardio), No murmurs present (Cardio) and No rub (Cardio) R ATE: regular rate RHYTHM: regular rhythm HEART SOUNDS: S1 normal heart sound present and S2 normal heart sound present GI: COMMON NORMALS: Normal to inspection, nondistended, normoactive bowel sounds present, Soft to palpation, non-tender, No hepatosplenomegaly present and no masses PALPATION: Yes Soft to palpation and Yes No hepatosplenomegaly present Neuro: COMMON NORMALS: patient oriented x3 SENSORIUM/ORIENTATION: Yes alert MENINGEAL SIGNS: Yes no meningeal signs Course 2 Vital Signs: Vital signs: Vital Signs Temperature 98.3 F 06/03/24 21:59 Pulse Rate 85 06/03/24 21:59 Respiratory Rate 16 06/03/24 21:59 Blood Pressure 145/91 06/03/24 21:59 Pulse Oximetry 98 06/03/24 21:59 Oxygen Delivery Me thod Room Air 06/03/24 21:59 MDM - Chest Pain Medical Decision Making Patient's workup in the standard chest pain fashion with lab work including serial troponins, serial EKGs, chest x-ray, all of which was essentially benign. It is felt patient's pain is not cardiac in nature. Medical Records I reviewed the patient's medical records. Lab Data I reviewed the patient's lab results. 06/03/24 22:50 06/03/24 22:50 Radiology Impressions Chest X-Ray 06/03/24 22:03 IMPRESSION: No acute findings. Laboratory Results WBC 8.70 10^3/uL (3.29-11.43) 06/03/24 22:50 RBC 5.08 10^6/uL (3.85-5.65) 06/03/24 22:50 Hgb 13.10 g/dL (11.27-16.99) 06/03/24 22:50 Hct 42.4 % (36-47) 06/03/24 22:50 MCV 83.5 fl (85-98) L 06/03/24 22:50 MCH 25.8 pg (27-33) L 06/03/24 22:50 MCHC 30.9 g/dL (30-55) 06/03/24 22:50 RDW 13.2 % (12.1-15.1) 06/03/24 22:50 Plt Count 264 10^3/cmm (157-399) 06/03/24 22:50 MPV 9.9 fL (7.4-10.4) 06/03/24 22:50 Neut % (Auto) 59.3 % 06/03/24 22:50 Lymph % (Auto) 30.9 % 06/03/24 22:50 [place] % (Auto) 7.5 % 06/03/24 22:50 Eos % (Auto) 1.5 % 06/03/24 22:50 Baso % (Auto) 0.5 % 06/03/24 22:50 Neut # (Auto) 5.16 10^3/uL (1.8-7.7) 06/03/24 22:50 Lymph # (Auto) 2.7 10^3/uL (0.8-4.8) 06/03/24 22:50 [place] # (Auto) 0.7 10^3/uL (0.2-0.9) 06/03/24 22:50 Eos # (Auto) 0.1 10^3/uL (0.0-0.8) 06/03/24 22:50 Baso # (Auto) 0.0 10^3/uL (0.0-0.1) 06/03/24 22:50 Nucleated RBC % (auto) 0 % 06/03/24 22:50 Nucleated RBCs # 0.0 /100WBC 06/03/24 22:50 Sodium 138 mmol/L (136-145) 06/03/24 22:50 Potassium 3.8 mmol/L (3.5-5.1) 06/03/24 22:50 Chloride 101 mmol/L (98-107) 06/03/24 22:50 Carbon Dioxide 26 mmol/L (22-29) 06/03/24 22:50 Anion Gap 14.8 (5-19) 06/03/24 22:50 BUN 9 mg/dL (6-20) 06/03/24 22:50 Creatinine 0.5 mg/dL (0.5-0.9) 06/03/24 22:50 GFR Calculation 135.3 mL/min (90-130) H 06/03/24 22:50 Glucose 125 mg/dL (65-115) H 06/03/24 22:50 Calculated Osmolality 286 mOsm/kg (285-295) 06/03/24 22:50 Calcium 8.6 mg/dL (8.5-10.5) 06/03/24 22:50 Total Bilirubin 0.2 mg/dL (0.15-1.2) 06/03/24 22:50 AST 30 U/L (0-32) 06/03/24 22:50 ALT 47 U/L (0-33) H 06/03/24 22:50 Alkaline Phosphatase 91 U/L (35-105) 06/03/24 22:50 Troponin T Baseline < 6 ng/L (0-10) 06/03/24 22:50 Troponin T 120 Minute 6.00 ng/L (0-10) 06/04/24 00:42 Delta Troponin T 0.49789 ABS# (0-10) 06/04/24 00:42 Total Protein 6.5 g/dL (6.6-8.7) L 06/03/24 22:50 Albumin 4.3 g/dL (3.5-5.2) 06/03/24 22:50 Globulin 2.2 g/dL (1.3-4.6) 06/03/24 22:50 All radiology interpretation(s) finalized by discharge Discharge Plan Discharge Patient Disposition: Home Clinical Impression: Atypical chest pain Condition: Stable Prescriptions: No Action cyclobenzaprine 5 mg tablet 5 mg PO TID PRN (Reason: muscle spasm) Qty: 30 0RF Excedrin Migraine 250-250-65 mg tablet 1 tab PO Q6H PRN (Reason: Pain) albuterol sulfate 90 mcg/actuation HFA aerosol inhaler 2 inh inhalation Q6H PRN (Reason: shortness of breath or wheezing) Qty: 8.5 0RF levothyroxine 50 mcg tablet See Rx Instructions .ROUTE .COMPLEX Qty: 90 0RF Dose Instruction: TAKE 1 TABLET BY MOUTH EVERY DAY Rx Instructions: TAKE 1 TABLET BY MOUTH EVERY DAY Flonase Allergy Relief 50 mcg/actuation [place],Suspension 1 spray INTRANASAL BID PRN (Reason: Allergy Symptoms) Rx Instructions: administer into each nostril Zyrtec 10 mg Capsule 10 mg PO DAILY PRN (Reason: Allergy Symptoms) Discharge Orders: Discharge ED (Routine); Ordered 06/04/24 Ordered By: Js Reddy Referrals: Tiffany Del Rio MD [Primary Care Provider] - 1 week Patient Instructions: Chest Pain - Noncardiac Activity Restrictions/Additional Instructions: Thank you for choosing [facility] for your healthcare needs today. Please realize that you were seen in the emergency department and that we are providing you with an emergency medical screening exam and this may not be a complete and all exclusive of all testing and/or medical workup we may need to determine your element or severity of your illness. It is very important that you follow-up as instructed with your primary care provider or specialist for the additional evaluation and to discuss your medical treatment plan. You may return to the emergency department should you have concerns or if your condition changes or worsens in any way. Coding Level of Care Code ED Station Cook for Beatrice Townsend
[2024-06-03 23:26] LABS: Alanine Aminotransferase 47 U/L (0-33); Albumin Level 4.3 g/dL (3.5-5.2); Alkaline Phosphatase 91 U/L (35-105); Anion Gap 14.8 (5-19); Aspartate Amino Transferase 30 U/L (0-32); Blood Urea Nitrogen 9 mg/dL (6-20); Calcium 8.6 mg/dL (8.5-10.5); Carbon Dioxide 26 mmol/L (22-29); Chloride 101 mmol/L (98-107); Creatinine Clr Calc Pharmacy 186.9539; Globulin 2.2 g/dL (1.3-4.6); Glomerular Filtration Rate 135.3 mL/min (90-130); Glucose 125 mg/dL (65-115); Osmolality Calculated 286 mOsm/kg (285-295); Potassium 3.8 mmol/L (3.5-5.1); Sodium 138 mmol/L (136-145); Total Bilirubin 0.2 mg/dL (0.15-1.2); Total Protein 6.5 g/dL (6.6-8.7)
[2024-06-04 01:12] LABS: Troponin 5 2HR Delta 0.00001 ABS# (0-10)
[2024-06-04 01:20] VITALS: BP 149/97; PULSE 84; O2SAT 99
== END 2024-06-04 01:21 | disposition home or self-care (01) ==
PROVIDERS: Emergency Provider Emergency Medicine; PCP Family Medicine
DX: R07.89 Other chest pain (principal); Z87.891 Personal history of nicotine dependence
CPT/HCPCS: 36415; 71045; 80053; 84484; 85025; 93005; 99285

== ENCOUNTER → 2024-08-10 10:13 | Outpatient (BNVA) | payer OTHER, SELFPAY | PROVIDERS: PCP Family Medicine; Visit Provider Nurse Practitioner Women's Health | DX: Z30.430 Encounter for insertion of intrauterine contraceptive device (principal); Z12.4 Encounter for screening for malignant neoplasm of cervix; Z30.014 Encounter for initial prescription of intrauterine contraceptive device | CPT/HCPCS: 81025; 87624 ==

== ENCOUNTER → 2024-08-24 13:08 | Outpatient (BNVA) | payer OTHER, SELFPAY | PROVIDERS: PCP Family Medicine; Visit Provider Nurse Practitioner Women's Health | DX: Z11.3 Encounter for screening for infections with a predominantly sexual mode of transmission (principal) | CPT/HCPCS: 86592; 86803; 87340; 87491; 87591; 87661; 87806 ==

== ENCOUNTER → 2024-09-06 09:28 | Outpatient (BNVA) | payer OTHER, SELFPAY | PROVIDERS: PCP Family Medicine; Visit Provider Family Medicine | DX: E11.9 Type 2 diabetes mellitus without complications (principal); E06.3 Autoimmune thyroiditis | CPT/HCPCS: 80053; 80061; 83036; 84443 ==

== ENCOUNTER 2025-06-27 14:26 | Outpatient (CLI) | payer OTHER, SELFPAY ==
--- NOTE | 2025-06-27 14:32 | MR_ITS ---
WS: [id number] MRI BRAIN WITHOUT CONTRAST HISTORY: headaches dizziness, hx head injury COMPARISON: None available. TECHNIQUE: Diffusion imaging, multiplanar T1, T2 and FLAIR imaging obtained. No evidence for acute infarct or hemorrhage. Armas-white matter differentiation is normal. No remote or acute infarcts are volume loss. Ventricles and extra-axial spaces are normal. No inferior displacement of cerebellar tonsils. The sella turcica and pituitary gland are unremarkable. Dural venous sinuses and resighini of [place] demonstrate no abnormality on this unenhanced studies. Paranasal sinuses: Large mucous retention cyst in the RIGHT maxillary sinus. No air-fluid levels. Mastoid air cells: Normal. Calvarium and scalp: Intact. MR/MR head wo con* [id number] IMPRESSION: 1. No diffusion abnormalities or acute infarct. 2. No intracranial hemorrhage or hemosiderin depositions. 3. No significant volume loss or atrophy. 4. Large RIGHT maxillary sinus mucous retention cyst.
== END 2025-06-27 14:27 | disposition home or self-care (01) ==
LOC: RAD 14:27
PROVIDERS: PCP Family Medicine; Visit Provider Family Medicine
DX: R42 Dizziness and giddiness (principal); R51.9 Headache, unspecified; J34.1 Cyst and mucocele of nose and nasal sinus; Z87.820 Personal history of traumatic brain injury
CPT/HCPCS: 70551